=== PATIENT | female | born 1990 | race Caucasian/White ===

== ENCOUNTER 2016-06-25 21:18 | Emergency (ER) | payer OTHER ==
[~2016-06-25] VITALS: Ht 170.2 cm; Wt 99.8 kg
[2016-06-25 21:34] VITALS: BP 117/83
--- NOTE | 2016-06-25 22:15 | ED INFLUENZA/URI COMPLAINT ---
History of Present Illness General Chief Complaint: Upper Respiratory Sx/Fever Stated Complaint: COUGH,DIFF BREATHING Source: patient Exam Limitations: no limitations Vital Signs & Intake/Output Vital Signs & Intake/Output Vital Signs Date Time Temp Pulse Resp B/P Pulse O2 O2 Flow FiO2 Ox Delivery Rate 06/25 2134 97.5 92 18 117/83 98 Room Air ED Intake and Output 06/26 0000 06/25 1200 Intake Total Output Total Balance Patient 220 lb Weight Allergies Coded Allergies: No Known Allergies (06/25/16) Reconcile Medications Albuterol Sulfate (Ventolin Hfa) 90 MCG HFA.AER.AD 2 PUF INH Q4-6 PRN PRN COUGH,WHEEZE Amoxicillin/Potassium Clav (Augmentin 875-125 Tablet) 875 MG-125 MG TABLET 1 TAB PO BID BRONCHITIS Benzonatate (Tessalon Perle) 100 MG CAPSULE 1 CAP PO TID COUGH Escitalopram Oxalate 20 MG TABLET 1 TAB PO DAILY ANXIETY (Reported) Levothyroxine Sodium 88 MCG TABLET 1 TAB PO DAILY THYROID (Reported) Prednisone 50 MG TABLET 1 TAB PO DAILY BRONCHITIS Triage Note: PT COMPLAINS OF URI SYMPTOMS SINCE SUNDAY Triage Nurses Notes Reviewed? yes Onset: Gradual Duration: day(s): Timing: recent history Severity: mild, moderate Modifying Factors: Improves With: rest. Associated Symptoms: cough, nasal congestion, nasal drainage : No Patient currently breastfeeds: No HPI: 26-year-old woman presents with 3 day history of cough sinus congestion productive of slight phlegm. She notes that she feels like there is, "phlegm in my chest." She does notes diffuse myalgias. She is tolerating fluids without problem. She denies fever nausea vomiting diarrhea chest pain. Past History Travel History Traveled to [place] past 21 day No Medical History Any Pertinent Medical History? 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 No Review of Systems Review of Systems Constitutional: Reports: no symptoms. EENTM: Reports: no symptoms. Respiratory: Reports: no symptoms. Cardiovascular: Reports: no symptoms. GI: Reports: no symptoms. Genitourinary: Reports: no symptoms. Musculoskeletal: Reports: no symptoms. Skin: Reports: no symptoms. Neurological/Psychological: Reports: no symptoms. Hematologic/Endocrine: Reports: no symptoms. Immunologic/Allergic: Reports: no symptoms. All Other Systems: Reviewed and Negative Physical Exam Physical Exam General Appearance: well developed/nourished, mild distress Head: atraumatic, normal appearance Eyes: Bilateral: normal appearance. Ears, Nose, Throat: normal ENT inspection, moist mucous membrane, Tympanic normal, nasal congestion, nasal drainage Neck: normal inspection, supple, full range of motion Respiratory: chest non-tender, no respiratory distress, quiet respiration, lungs clear, rhonchi Cardiovascular: regular rate/rhythm Gastrointestinal: normal bowel sounds, soft, non-tender Back: normal inspection Extremities: normal inspection Neurologic/Psych: no motor/sensory deficits, awake, alert, oriented x 3 Skin: intact, normal color, warm/dry Core Measures Severe Sepsis Present: No Septic Shock Present: No Progress Differential Diagnosis: Sinusitis versus viral URI versus bronchitis. Plan of Care: Patient given antibiotics and supportive medications. Initial ED EKG: none Departure Departure Disposition: HOME OR SELF CARE Condition: Stable Clinical Impression Primary Impression: Bronchitis Referrals: THOR HENNING,JOSIAH Solis (PCP/Family) Departure Forms: Customer Survey General Discharge Information Prescriptions: Current Visit Scripts Amoxicillin/Potassium Clav (Augmentin 875-125 Tablet) 1 TAB PO BID #14 TAB Prednisone 1 TAB PO DAILY #5 TAB Albuterol Sulfate (Ventolin Hfa) 2 PUF INH Q4-6 PRN PRN COUGH,WHEEZE #1 INHAL Benzonatate (Tessalon Perle) 1 CAP PO TID #30 CAP
[2016-06-25] MEDS ORDERED: VENTOLIN HFA18 GM INH (22:26)
[2016-06-25] MEDS ORDERED: AUGMENTIN 875-1 EACH PO (22:26)
[2016-06-25] MEDS ORDERED: PREDNISONE50 M1 PO (22:26)
[2016-06-25] MEDS ORDERED: TESSALON PERLE100 M1 PO (22:26)
[2016-06-25] MEDS ORDERED: ESCITALOPRAM OX20 MG PO (22:37)
[2016-06-25] MEDS ORDERED: LEVOTHYROXINE88 MCG PO (22:38)
== END 2016-06-25 22:40 ==
LOC: ERH 21:18
DX: J40 Bronchitis, not specified as acute or chronic (principal)